=== PATIENT | female | born 1950 | race Caucasian/White ===

== ENCOUNTER 2019-06-07 10:49 | Outpatient (CLI) | payer MEDICARE, OTHER ==
[2019-06-07 11:13] LABS: BASOPHILS % (AUTO) 0.6 %; EOSINOPHILS # (AUTO) 0.1 10^3/uL (0.0-0.7); HGB - HEMOGLOBIN 14.2 g/dL (12.0-16.0); LYMPHOCYTES # (AUTO) 1.7 10^3/uL (1.5-3.5); LYMPHOCYTES % (AUTO) 25.3 %; MEAN CORPUSCULAR HEMOGLOBIN 29.3 pg (27.0-31.0); MEAN CORPUSCULAR HGB CONC 32.3 g/dL (32.0-36.0); MEAN CORPUSCULAR VOLUME 90.9 fL (81.0-99.0); MEAN PLATELET VOLUME 10.7 fL (7.9-10.8); MONOCYTES # (AUTO) 0.6 10^3/uL (0.0-1.0); MONOCYTES % (AUTO) 9.4 %; NEUTROPHILS # (AUTO) 4.3 10^3/uL (1.5-6.6); NEUTROPHILS % (AUTO) 63.3 %; PLT - PLATELET COUNT 289 10^3/uL (130-450); RED BLOOD COUNT 4.84 10^6/uL (4.20-5.40); RED CELL DISTRIBUTION WIDTH 12.9 % (12.0-15.0); WHITE BLOOD COUNT 6.7 x10^3/uL (4.8-10.8)
[2019-06-07 11:34] LABS: ALBUMIN 4.1 g/dL (3.2-5.5); ALBUMIN/GLOBULIN RATIO 1.2 (1.0-2.2); ALKALINE PHOSPHATASE 63 IU/L (42-121); ALT ALANINE AMINOTRANSFERASE 20 IU/L (10-60); AST ASPARTATE AMINOTRANSFERASE 24 IU/L (10-42); BILIRUBIN,TOTAL 0.6 mg/dL (0.2-1.0); BUN - BLOOD UREA NITROGEN 11 mg/dL (6-20); CALCIUM 9.3 mg/dL (8.5-10.3); CARBON DIOXIDE - CO2 26 mmol/L (21-32); CHLORIDE 101 mmol/L (101-111); CHOL/HDL RATIO 4.6 (<4.4); CHOLESTEROL 230 mg/dL; CREATININE 0.6 mg/dL (0.4-1.0); GFR - MDRD 100 (>89); GLUCOSE 100 mg/dL (70-100); HDL CHOLESTEROL 50 mg/dL; LDL CHOLESTEROL,CALCULATED 156 mg/dL; LDL/HDL RATIO 3.1 (<4.4); SODIUM 138 mmol/L (135-145); TOTAL PROTEIN 7.5 g/dL (6.7-8.2); VLDL CHOLESTEROL 24 mg/dL
== END 2019-06-07 10:50 | disposition home or self-care (01) ==
LOC: LAB 10:49
PROVIDERS: ATTEND Physician Assistant
DX: Z79.899 Other long term (current) drug therapy (principal)
CPT/HCPCS: 36415; 80053; 80061; 83721; 85025

== ENCOUNTER 2019-06-17 14:43 | Outpatient (CLI) | payer MEDICARE, OTHER ==
--- NOTE | 2019-06-30 08:58 | Mammography Report ---
Reason: SCREENING MAMMO Procedure Date: 06/17/2019 Accession Number: [id number] / [id number] Procedure: JOE - Screening Mammo w/Jeffry CPT Code: FULL RESULT: EXAM: Screening Mammo w/Jeffry DATE: 06/17/2019 3:19 PM CLINICAL HISTORY: Screening encounter. TECHNIQUE: (B) - Bilateral CC and MLO views were obtained. COMPARISON: None PARENCHYMAL PATTERN: (A) - The breast(s) demonstrate(s) scattered fibroglandular densities. FINDINGS: There are typically benign large rodlike calcifications. There are no suspicious masses, calcifications, or areas of distortion. IMPRESSION: Benign findings. BI-RADS category 2. RECOMMENDATION: (ANNUAL) - Recommend routine annual screening mammography. BI-RADS CATEGORY: (2) - Benign Findings. STANDARD QUALIFYING STATEMENTS: 1. This examination was not reviewed with the aid of Computer-Aided Detection (CAD). 2. A negative or benign imaging report should not preclude biopsy if clinically suspicious findings are present. 3. Dense breasts may obscure an underlying neoplasm. 4. This examination was reviewed with the aid of 3D breast imaging (tomosynthesis).
== END 2019-06-17 14:44 | disposition home or self-care (01) ==
LOC: DI 14:43
DX: Z12.31 Encounter for screening mammogram for malignant neoplasm of breast (principal)
CPT/HCPCS: 77063; 77067

== ENCOUNTER 2019-07-19 13:22 | Outpatient (CLI) | payer MEDICARE, OTHER ==
[2019-07-25 10:16] VITALS: BP 120/70
--- NOTE | 2019-07-25 10:16 | SLEEP CARE CONSULTATION ---
Information from patient questionnaire entered by Tresa Frederick. I have reviewed and concur with the information entered by Tresa Frederick. This document represents the service I personally performed and the decisions made by me, Noah Fairchild MD, [facility]. History of Present Illness Reason for Visit: New patient Chief Complaint: reports: Observed pauses in breathing, Frequent awakenings at night Duration of Symptoms: 7+ YEARS Usual bedtime: 10:00PM Time it takes to fall asleep: 10 MINUTES Snores at night: Yes Observed to quit breathing while asleep: Yes Sleeps alone due to snoring: No Number of times waking at night: 4-5 Reasons for waking at night: reports: Other (JUST WAKE UP) Toss, Turn, or Twitch while sleeping: Yes Recalls having dreams: Yes Usually gets out of bed at: 7:00 - 8:00 AM Feels refreshed in the morning: No Morning headache: Yes Sleepy or fatigued during the day: No Ever fallen asleep while driving: No Takes day naps: No Dreams during day naps: No Prior sleep studies: Yes (MULTIPLE LOCATIONS/STUDIES) Year and Where: 2011 [facility]/ 2012 [facility]/ 2018 [place] Additional HPI information: I had the pleasure of seeing Ms. Mcarthur today regarding obstructive sleep apnea-hypopnea. As you know, she is a 68 year old lady who was originally diagnosed with the sleep-disordered breathing at [facility] in [place] and then later at [facility] at 2011. The AHI was 33.9. Her CPAP is set at 9 cmH2O. Her CPAP is set at 9 cm. She wears a nasal mask. She uses her CPAP every night and all night. She did not bring the memory card. She thinks she sleeps better with the CPAP. She does not snore through the CPAP. Her durable medical supplier informed her that she needed a new prescription. She gained 20 lbs since her last sleep study. - Parasomnia Symptoms Ever been unable to move upon waking from sleep: No Walks in sleep: No Talks in sleep: No Ever acted out dreams in sleep: No Ever felt weak in the knees when startled or emotional: No Bothered by creepy, crawly, restless sensations in legs: No Problems with memory or concentration: No Subjective Initial [place] Sleepiness Scale score: 4 Past Medical History Past Medical History: reports: Anxiety Social History The patient's occupation is a RE. Patient is and lives in [place]. Have you smoked in the past 12 months: No Alcohol use: Yes Alcohol amount and frequency: 1 GLASS/WEEK Caffeine use: Yes Caffeine amount and frequency: 2 CUPS/AM Family History Family history of sleep disordered breathing: Yes Family Hx Sleep Apnea: Sibling: Snoring (SON) Allergies and Home Medications Known drug allergies: No Drug allergies reviewed: Yes Home medication list reviewed: Yes (sertraline, gabapentin, and Tylenol) Review of Systems Cardiovascular: denies: high blood pressure, palpitations, chest pain, irregular heart rate or pulse, leg or foot swelling, have to sleep sitting up, other Respiratory: denies: shortness of breath, wheeze, sputum production, chronic cough, other Gastrointestinal: denies: heartburn, difficulty swallowing, nausea, vomitting, diarrhea, abdominal pain, other Urinary: denies: incontinence, frequency, urgency, impotence, other Neurological: reports: headaches Psychiatric: reports: anxiety Ear/Nose/Throat: denies: nasal congestion, sinus problems, nose bleeds, dry mouth/throat, hoarseness, injury to nose, tonsillectomy, wisdom teeth removed, other Endocrine: reports: history of goiter Musculoskeletal: reports: neck pain, back pain, muscle pain or cramping (CRAMPING) Physical Exam Vital signs obtained and entered by: Dr. Fairchild Blood Pressure: 120/70 Cuff size: regular Heart Rate: 72 O2 Saturation: 96 Height: 5 ft 5 in Weight (kg): 156 lb Body Mass Index: 25.9 BMI Classification: Overweight HEENT: No craniofacial malformation Nostrils: patent to airflow Turbinates: normal Septum: midline Mouth and throat: narrow oropharynx Soft palate: long Hard palate: normal Uvula: normal Uvula visualization: 50% Mallampati Class II Tongue: normal in size Tonsils: small Chin and jaw: normal size and position Neck: normal w/o lymphadenopathy or thyromegaly Heart: regular rate and rhythm Lungs: clear bilaterally Abdomen: soft, non-tender Extremities: no edema or clubbing Neurologic: intact, no focal deficits Impression and Plan IMPRESSION: 1. Obstructive Sleep Apnea-Hypopnea Syndrome, severe, as previously diagnosed. According to her, she has had good treatment compliance. The effectiveness of the treatment is unknown as we do not have the compliance/efficacy report to review. Narrow oropharynx and obesity are common predisposing factors for obstructive sleep apnea-hypopnea syndrome. Because the CPAP is now older than the useful life of 5 years, I will order the patient a new one and make it an autoCPAP set between 7 and 12 cmH2O. Plan: 1. Prescription made for an autoCPAP, heated humidifier, and related supplies. 2. Try Respironics DreamWear nasal cushion mask and ResMed N30i mask. 3. Attempt to lose some weight. 4. Obtain her diagnostic polysomnography from [facility] or [place]. 5. Return for follow up after one month on the new machine. I spent 100% of this 15 minute visit face to face with the patient with greater than 50% of this was spent time counseling the patient and coordination of care.
== END 2019-07-19 13:23 | disposition home or self-care (01) ==
LOC: SC 13:22
PROVIDERS: ATTEND Internal Medicine Pulmonary Disease
DX: G47.33 Obstructive sleep apnea (adult) (pediatric) (principal)
CPT/HCPCS: 99203; G0463; 99212

== ENCOUNTER 2019-09-13 08:03 | Outpatient (CLI) | payer MEDICARE, OTHER ==
[2019-09-13 08:40] LABS: CHOL/HDL RATIO 4.3 (<4.4); CHOLESTEROL 210 mg/dL; HDL CHOLESTEROL 49 mg/dL; LDL CHOLESTEROL,CALCULATED 143 mg/dL; LDL/HDL RATIO 2.9 (<4.4); VLDL CHOLESTEROL 18 mg/dL
== END 2019-09-13 08:04 | disposition home or self-care (01) ==
LOC: LAB 08:03
PROVIDERS: ATTEND Physician Assistant
DX: E78.5 Hyperlipidemia, unspecified (principal)
CPT/HCPCS: 36415; 80061; 83721

== ENCOUNTER 2019-10-11 10:59 | Outpatient (CLI) | payer MEDICARE, OTHER ==
--- NOTE | 2019-10-11 11:24 | SLEEP CARE CONSULTATION ---
Information from patient questionnaire entered by Tresa Frederick. I have reviewed and concur with the information entered by Tresa Frederick. This document represents the service I personally performed and the decisions made by me, Noah Fairchild MD, [facility]. History of Present Illness Previous diagnosis: Severe, Obstructive Sleep Apnea-Hypopnea Syndrome AHI: 33.9 Reason for follow up: first compliance Equipment type: CPAP Equipment obtained from: [employer] Prior sleep studies: Yes HPI additional information: HPI: Ms. Mcarthur returned today for follow up of nasal CPAP therapy. She was diagnosed with severe obstructive sleep apnea-hypopnea syndrome. The patient recently acquired a new autoCPAP from [employer]. She now wears the [employer] DreamWear nasal cushion mask. She reports using the device nightly and all through the night. She complained of no particular problem with the device such as soreness on the face, dry nose, epistaxis, nasal congestion or headache. She thinks that the pressure of 7 12 cmH2O is comfortable (her old CPAP was set on 9 cmH2O). She no longer has aerophagia. On the CPAP therapy she notices improvement in her sleep quality, and that she wakes up feeling fresher in the morning and more awake/alert during the day. Her notices no snore at all. The average residual AHI is 2.7; and air leak, 0 L/min. The 90th percentile pressure is 8.7 cmH2O. CPAP Compliance Data - Data Reviewed with Patient Average duration of nightly device use: 6H 33M Compliance rate %: 100 Current pressure setting (cmH2O): 7-12 Humidity settin Heated hose settin Average residual AHI: 2.7 Average large leak: 0s Subjective Patient concerns: reports: mask discomfort, air blowing in eyes Initial [place] Sleepiness Scale score: 4 Current [place] Sleepiness Scale score: 3 Allergies and Home Medications Drug allergies reviewed: Yes Home medication list reviewed: Yes Review of Systems Review of systems same as previous: Yes Physical Exam Weight: 156 lb Impression and Plan IMPRESSION: 1. Obstructive Sleep Apnea-Hypopnea Syndrome, severe, with the patient doing well on nasal CPAP therapy. She has excellent compliance and significant clinical improvement. The current pressure appears effective and comfortable. Overall, she is very satisfied with treatment and plans to continue with it long-term. No adjustment is necessary today. PLAN: 1. Continue with autoCPAP set at 7 - 12 cmH2O. 2. Try ResMed N30i mask 4. Return in one year for follow up or earlier if there is any problem with the treatment. I spent 100% of this 20 minute visit face to face with the patient with greater than 50% of this was spent time counseling the patient and coordination of care.
== END 2019-10-11 11:00 | disposition home or self-care (01) ==
LOC: SC 10:59
PROVIDERS: ATTEND Internal Medicine Pulmonary Disease
DX: G47.33 Obstructive sleep apnea (adult) (pediatric) (principal)
CPT/HCPCS: 99213; G0463; 99212

== ENCOUNTER 2020-06-27 07:56 | Outpatient (CLI) | payer MEDICARE, OTHER ==
[2020-06-27 08:28] LABS: ALBUMIN 4.3 g/dL (3.2-5.5); ALBUMIN/GLOBULIN RATIO 1.4 (1.0-2.2); ALKALINE PHOSPHATASE 51 IU/L (42-121); ALT ALANINE AMINOTRANSFERASE 15 IU/L (10-60); AST ASPARTATE AMINOTRANSFERASE 20 IU/L (10-42); BILIRUBIN,TOTAL 0.4 mg/dL (0.2-1.0); BUN - BLOOD UREA NITROGEN 13 mg/dL (6-20); CARBON DIOXIDE - CO2 27 mmol/L (21-32); CHLORIDE 102 mmol/L (101-111); CHOL/HDL RATIO 3.7 (<4.4); CHOLESTEROL 201 mg/dL; CREATININE 0.6 mg/dL (0.4-1.0); GLUCOSE 100 mg/dL (70-100); HDL CHOLESTEROL 54 mg/dL; LDL CHOLESTEROL,CALCULATED 129 mg/dL; LDL/HDL RATIO 2.4 (<4.4); SODIUM 138 mmol/L (135-145); TOTAL PROTEIN 7.3 g/dL (6.7-8.2); VLDL CHOLESTEROL 18 mg/dL
== END 2020-06-27 07:57 | disposition home or self-care (01) ==
LOC: LAB 07:56
PROVIDERS: ATTEND Physician Assistant
DX: E78.5 Hyperlipidemia, unspecified (principal)
CPT/HCPCS: 36415; 80053; 80061; 83721

== ENCOUNTER 2020-07-15 12:57 | Outpatient (CLI) | payer MEDICARE, OTHER ==
--- NOTE | 2020-07-15 14:39 | Ultrasound Report ---
PROCEDURE: Head or Neck Soft Tissue INDICATIONS: THYROID NODULE TECHNIQUE: Real-time scanning was performed of the thyroid gland, with image documentation. COMPARISON: 06/21/2019 FINDINGS: Right: There is a right lobe measures 3.9 x 1.6 x 1.3 cm. Left: The left thyroid lobe measures 3.8 x 1.2 x 1.1 cm Isthmus: The thyroid isthmus measures 3 mm in thickness. 2 Right-sided thyroid nodules are seen: Right superior thyroid laterally 0.4 x 0.2 x 0.3 cm, previously measuring 0.4 x 0.2 x 0.3 cm Solid Markedly hypoechoic Wider than than tall Smooth margins Punctate calcifications Total points: 7 TI-RADS category: 5 Right mid thyroid posteriorly 0.5 x 0.3 x 0.4 cm, previously measuring 0.6 x 0.5 x 0.4 cm Solid Markedly hypoechoic Weighted interval Smooth margins Punctate calcifications Total points: 7 TI-RADS category: 5 Nonenlarged lymph nodes can be seen on both sides. The left-sided lymph node is decreased in size com pared to the prior. IMPRESSION: Stable right-sided thyroid nodules are seen. Given the small size, no specific imaging follow-up is r ecommended by published criteria. However, attention should be paid to these nodules on future follow -up studies. Nonenlarged lymph nodes are seen on both sides. Reviewed by: Pedro Luis Claros MD on 07/15/2020 1:38 PM NIKO Approved by: Pedro Luis Claros MD on 07/15/2020 1:38 PM NIKO Station ID: [id number]
== END 2020-07-15 12:58 | disposition home or self-care (01) ==
LOC: DI 12:57
PROVIDERS: ATTEND Physician Assistant
DX: E04.2 Nontoxic multinodular goiter (principal)
CPT/HCPCS: 76536

== ENCOUNTER 2020-07-19 10:55 | Outpatient (CLI) | payer MEDICARE, OTHER ==
--- NOTE | 2020-07-19 12:19 | DEXA Report ---
PROCEDURE: Dexa Spine and/or Hip INDICATIONS: OSTEOPOROSIS TECHNIQUE: Dual energy x-ray absorptiometry (DXA) was performed on a [employer] System. Regions measur ed are the AP Spine, femoral neck, and if needed forearm. COMPARISON: 06/21/2019 FINDINGS: Lumbar Spine: Bone Mineral Density 0.971 g/cm/cm,T score -1.7, osteopenia, change from previous -0.7% Left Hip: Bone Mineral Density 0.728 g/cm/cm,T score -2.2, osteopenia, change from previous 4.0% Left Femoral Neck: Bone Mineral Density 0.722 g/cm/cm, T score -2.3, osteopenia, (T score greater or equal to -1.0: NORMAL) (T score from -1.1 to -2.4: OSTEOPENIA) (T score less than or equal to -2.5 to: OSTEOPOROSIS) Impression: 1. Osteopenia elevates the patient's fracture risk. 2. Interval increase in left hip bone mineral density compared to the prior study. Patients with diagnosis of osteoporosis or osteopenia should have regular bone mineral density assess ment. For those eligible for Medicare, routine testing is allowed once every 2 years. Testing frequ ency can be increased for patients who have rapidly progressing disease or for those who are receivin g medical therapy to restore bone mass. Reviewed by: Ayanna Lawrence MD on 07/19/2020 12:17 PM PDT Approved by: Ayanna Lawrence MD on 07/19/2020 12:17 PM PDT Station ID: [id number]
== END 2020-07-19 10:56 | disposition home or self-care (01) ==
LOC: DI 10:55
PROVIDERS: ATTEND Physician Assistant
DX: M85.89 Other specified disorders of bone density and structure, multiple sites (principal)
CPT/HCPCS: 77080

== ENCOUNTER 2020-08-10 09:44 | Outpatient (CLI) | payer MEDICARE, OTHER ==
--- NOTE | 2020-08-10 10:20 | SLEEP CARE CONSULTATION ---
Information from patient questionnaire entered by Ailin Jhaveri. I have reviewed and concur with the information entered by Ailin Jhaveri. This document represents the service I personally performed and the decisions made by , Danay Norris ARNP. History of Present Illness Service Date and Time: 08/10/2020 09 Previous diagnosis: Severe, Obstructive Sleep Apnea-Hypopnea Syndrome AHI: 33.9 (in 2011) Reason for follow up: other (10 month) Equipment type: CPAP Equipment obtained from: [employer] (getting supplies as needed) Mask style: Nasal pillows Mask brand: Respironics Backup mask available: Yes (will save older mask when gets replacement) Last cushion change: 2 days ago Prior sleep studies: Yes Year and Where: 2011 [facility]/ 2012 [facility]/ 2017 [facility] additional information: GLORY JUNG was diagnosed to have severe, AHI 33.9, obstructive sleep apnea-hypopnea syndrome and returned today for CPAP therapy 10 month follow-up. Sleep Study - Results Prior sleep studies: Yes Year and Where: 2011 [facility]2017 [place] CPAP Compliance Data - Data Reviewed with Patient Average duration of nightly device use: 6.2 Compliance rate %: 98.3 (180 days) Current pressure setting (cmH2O): 7-12 Humidity settin Heated hose settin Average residual AHI: 2.7 Average large leak: 3 sec Subjective Patient concerns: reports: aerophagia (occasional- couple times a month), mask discomfort (when she awakens during the night, feels uncomfortable then), condensation in mask/hose (gets little sweaty; no condensation in hose), dry mouth, nose, throat (sometimes a dry mouth, 1-2 times a month). denies: air blowing in eyes (wakes up with dry eyes every morning), mask leak noise, nasal congestion, epistaxis, other Observed to snore while using device: No (as far as she knows; has not noticed) Current pressure setting perceived as: comfortable On therapy, patient: reports: sleeping better, awakening more refreshed, being more awake and alert during the day, more rested overall, other (reduced morning headaches). denies: drowsiness while driving Initial [place] Sleepiness Scale score: 4 (in 2019) Current [place] Sleepiness Scale score: 3 Allergies and Home Medications Drug allergies reviewed: Yes (NKDA) Home medication list reviewed: Yes Allergy and home medication list: Alendronate Sodium tab 70 mg, 1 tablet weekly for osteoporosis. Review of Systems Review of systems same as previous: No (osteoporosis) Physical Exam Heart Rate: 73 O2 Saturation: 97 Height: 5 ft 5 in Weight: 142 lb Body Mass Index: 23.6 BMI Classification: Healthy weight Impression and Plan 1. Obstructive Sleep Apnea-Hypopnea Syndrome, severe, with good treatment compliance and good apnea control. On CPAP therapy, the patient has better sleep quality and is more rested overall. Patient states only 1-2 times a month does she wake up with aerophagia and the pressure overall does not feel too high. Over the last couple of months she is waking up at 2-3 AM and feeling wide awake. She is unable to go to sleep and gets frustrated with the mask because she is not asleep and may take it off. She does have a little claustrophobic feeling. She states no issue with small nasal air pillow mask fit, no air blowing in her eyes or air leak noises. She is unsure why she is waking up and cannot get to sleep. She stated that she has been going back to sleep for a few hours to compensate for not sleeping in the early hours of the morning. I reviewed with her to look at making sure she is consistent with going to bed at the same time and getting up at the same time every day which may help with these insomniac events. She denies condensation in the hose but is having some "sweating" around the mask itself from the air feeling warm. I advised her to adjust the humidity setting and/or the heated hose until this improves and instructed her how to do this. She also has been having dry eyes every morning. She does not feel air blowing into her eyes which could cause this dryness. I advised her to try some OTC moisture drops and to see her eye doctor for an evaluation of her dry eyes and possible treatment if needed. She voiced understanding and agreement with this plan of care. Patient's apnea severity and rationale for treatment to reduce apnea, improve sleep quality and reduce cardiovascular and cerebrovascular events was reviewed. I also reviewed the benefit of consistent device use of CPAP for anxiety. * Continue auto CPAP pressure at 7-12 cmH2O * Follow up with Eye doctor for eye dryness * Notify me if snoring with mask or feeling that the pressure is too much or too little * Call this office if any problems using CPAP * Return for follow up in 1 year, or sooner if concerns arise Visit Type: In Office Time Spent with Patient (minutes): 21 Provider Statement: I spent 100% of the Face to Face Visit with the patient with greater than 50% spent counseling the patient and coordination of care.
== END 2020-08-10 09:45 | disposition home or self-care (01) ==
LOC: SC 09:44
PROVIDERS: ATTEND Nurse Practitioner Family
DX: G47.33 Obstructive sleep apnea (adult) (pediatric) (principal)
CPT/HCPCS: 99213; G0463; 99212

== ENCOUNTER 2021-07-01 07:13 | Outpatient (CLI) | payer MEDICARE, OTHER ==
[2021-07-01 07:30] LABS: BASOPHILS % (AUTO) 0.5 %; EOSINOPHILS # (AUTO) 0.1 10^3/uL (0.0-0.7); HCT - HEMATOCRIT 43.6 % (37.0-47.0); HGB - HEMOGLOBIN 14.3 g/dL (12.0-16.0); LYMPHOCYTES # (AUTO) 1.5 10^3/uL (1.5-3.5); LYMPHOCYTES % (AUTO) 24.8 %; MEAN CORPUSCULAR HEMOGLOBIN 30.7 pg (27.0-31.0); MEAN CORPUSCULAR HGB CONC 32.8 g/dL (32.0-36.0); MEAN CORPUSCULAR VOLUME 93.6 fL (81.0-99.0); MEAN PLATELET VOLUME 11.4 fL (7.9-10.8); MONOCYTES # (AUTO) 0.6 10^3/uL (0.0-1.0); MONOCYTES % (AUTO) 9.5 %; NEUTROPHILS # (AUTO) 3.7 10^3/uL (1.5-6.6); PLT - PLATELET COUNT 264 10^3/uL (130-450); RED BLOOD COUNT 4.66 10^6/uL (4.20-5.40); WHITE BLOOD COUNT 5.9 x10^3/uL (4.8-10.8)
[2021-07-01 07:48] LABS: ALBUMIN 4.1 g/dL (3.2-5.5); ALBUMIN/GLOBULIN RATIO 1.5 (1.0-2.2); ALKALINE PHOSPHATASE 51 IU/L (42-121); ALT ALANINE AMINOTRANSFERASE 15 IU/L (10-60); AST ASPARTATE AMINOTRANSFERASE 19 IU/L (10-42); BILIRUBIN,TOTAL 0.4 mg/dL (0.2-1.0); BUN - BLOOD UREA NITROGEN 11 mg/dL (6-20); CALCIUM 9.1 mg/dL (8.5-10.3); CARBON DIOXIDE - CO2 29 mmol/L (21-32); CHLORIDE 103 mmol/L (101-111); CHOL/HDL RATIO 4.3 (<4.4); CHOLESTEROL 196 mg/dL; CREATININE 0.7 mg/dL (0.4-1.0); GFR - MDRD 83 (>89); GLUCOSE 98 mg/dL (70-100); HDL CHOLESTEROL 46 mg/dL; LDL CHOLESTEROL,CALCULATED 125 mg/dL; LDL/HDL RATIO 2.7 (<4.4); POTASSIUM 4.1 mmol/L (3.5-5.0); SODIUM 139 mmol/L (135-145); TOTAL PROTEIN 6.8 g/dL (6.7-8.2); TRIGLYCERIDES 124 mg/dL; VLDL CHOLESTEROL 25 mg/dL
[2021-07-01 08:00] LABS: THYROID STIMULATING HORMONE 1.64 uIU/mL (0.34-5.60)
== END 2021-07-01 07:14 | disposition home or self-care (01) ==
LOC: LAB 07:13
PROVIDERS: ATTEND Nurse Practitioner
DX: E78.5 Hyperlipidemia, unspecified (principal); R53.83 Other fatigue
CPT/HCPCS: 36415; 80053; 80061; 83721; 84443; 85025

== ENCOUNTER 2021-07-19 09:48 | Outpatient (CLI) | payer MEDICARE, OTHER ==
--- NOTE | 2021-07-22 15:58 | Mammography Report ---
BILATERAL DIGITAL SCREENING MAMMOGRAM 3D/2D: 07/19/2021 CLINICAL: Routine screening. Comparison is made to exams dated: 06/17/2019 mammogram - [facility] and 12/18/2016 [facility]. There are scattered fibroglandular elements in both boris asts. No significant masses, calcifications, or other findings are seen in either breast. There has been no significant interval change. IMPRESSION: NEGATIVE There is no mammographic evidence of malignancy. A 1 year screening mammogram is recommended. This exam was interpreted at Station ID: [id number]. NOTE: For mammograms, a report in lay terms will be sent to the patient. Approximately 15% of breast malignancies will not be visualized mammographically. In the management of a palpable breast mass, a negative mammogram must not discourage biopsy of a clinically suspicious lesion. Electronically Signed By: David Thompson M.D. slc/penrad:07/19/2021 12:41:00 ACR BI-RADS Category 1: Negative 3341F PARENCHYMAL PATTERN: (A) - The breast(s) demonstrate(s) scattered fibroglandular densities. BI-RADS CATEGORY: (1) - 1 RECOMMENDATION: (ANNUAL) - Recommend routine annual screening mammography. [id number] 1 year screening LATERALITY: (B)
== END 2021-07-19 09:49 | disposition home or self-care (01) ==
LOC: DI 09:48
DX: Z12.31 Encounter for screening mammogram for malignant neoplasm of breast (principal)

== ENCOUNTER 2021-08-07 10:26 | Outpatient (CLI) | payer MEDICARE, OTHER ==
[2021-08-07 11:00] VITALS: BP 112/67
--- NOTE | 2021-08-07 11:00 | SLEEP CARE CONSULTATION ---
Information from patient questionnaire entered by Ailin Jhaveri. I have reviewed and concur with the information entered by Ailin Jhaveri. This document represents the service I personally performed and the decisions made by , Danay Norris ARNP. History of Present Illness Service Date and Time: 08/07/2021 1026 Previous diagnosis: Severe, Obstructive Sleep Apnea-Hypopnea Syndrome AHI: 33.9 (in 2011) Reason for follow up: annual (last seen 07/2020) Equipment type: CPAP Equipment obtained from: [employer] (getting supplies as needed) Mask style: Nasal Backup mask available: Yes (old mask) Last cushion change: 1 week Prior sleep studies: Yes Year and Where: 2011 [facility] Type of Sleep Study: Polysomnography HPI additional information: GLORY JUNG was diagnosed to have severe, AHI 33.9, obstructive sleep apnea-hypopnea syndrome and returned today for CPAP therapy annual follow-up. CPAP Compliance Data - Data Reviewed with Patient Average duration of nightly device use: 6 hr 34 min Compliance rate %: 98.3 (180 days) Current pressure setting (cmH2O): 7-12 Humidity settin Heated hose settin Average residual AHI: 3.0 Average large leak: 9 sec Subjective Patient concerns: reports: air blowing in eyes (just waking up with dry eyes), dry mouth, nose, throat (dry mouth), other (headache). denies: aerophagia, mask discomfort, mask leak noise, condensation in mask/hose, nasal congestion, epistaxis Observed to snore while using device: No Current pressure setting perceived as: comfortable On therapy, patient: reports: sleeping better, awakening more refreshed, being more awake and alert during the day, more rested overall. denies: drowsiness while driving Initial [place] Sleepiness Scale score: 4 (in 2019) Current [place] Sleepiness Scale score: 3 Allergies and Home Medications Home medication list reviewed: Yes Allergy and home medication list: Alendronate Sodium Sertraline HCL Premarin Cream Review of Systems Review of systems same as previous: Yes (no changes) Physical Exam Blood Pressure: 112/67 Cuff size: wrist Heart Rate: 67 O2 Saturation: 85 Height: 5 ft 5 in Weight: 148 lb Body Mass Index: 24.6 BMI Classification: Healthy weight Impression and Plan 1. Obstructive Sleep Apnea-Hypopnea Syndrome, severe, with good treatment compliance and good apnea control. On CPAP therapy, the patient has better sleep quality and is more rested overall. Patient states she feels she is doing better than she has overall since starting use of her CPAP therapy. She does get some dry eyes and some mouth dryness regularly. I encouraged her to try to use a sleeping mask to cover her eyes to see if this will help reduce any eye dryness. Oral dryness can be reduced by adjusting humidity setting higher or heated hose lower or by adjusting both settings. Verbal instructions given on how to change humidity and heated hose settings with rationale explaining why to change. Patient does have a [employer] device. Patient has already registered their device for the recall. Patient denies any black particles seen in machine or hos es, any unusual odors coming from device. Patient has not experienced any physical symptoms such as upper airway irritation, skin or eye irritation, asthma, nausea/vomiting, difficulty breathing or chest pain. Patient informed that they may use an inline CPAP filter that they can obtain online to reduce chance of any particles being inhaled or ingested. We discussed thoroughly the health risks of not using the CPAP versus continuing use with the filter in place. If patient is not able to sleep due to waking up choking, gasping for air or other respiratory distress that they may decide to continue using it until it is either replaced or repaired. Patient states she will continue using device with a filter until it is repaired. Patient voiced understanding and agreement with plan. Patient's apnea severity and rationale for treatment to reduce apnea, improve sleep quality and reduce cardiovascular and cerebrovascular events was reviewed. I also reviewed the benefit of consistent device use of CPAP for anxiety. * Continue auto CPAP pressure at 7-12 cmH2O * Notify me if snoring with mask or feeling that the pressure is too much or too little * Maintain a healthy weight * Call this office if any problems using CPAP * Return for follow up in 1 year, or sooner if concerns arise Counseling Topics: Spare mask, Weight control Visit Type: In Office Time Spent with Patient (minutes): 17 Provider Statement: I spent 100% of the Face to Face Visit with the patient with greater than 50% spent counseling the patient and coordination of care.
== END 2021-08-07 10:27 | disposition home or self-care (01) ==
LOC: SC 10:26
PROVIDERS: ATTEND Nurse Practitioner Family
DX: G47.33 Obstructive sleep apnea (adult) (pediatric) (principal)
CPT/HCPCS: 99212; G0463

== ENCOUNTER 2022-06-18 08:26 | Outpatient (CLI) | payer MEDICARE, OTHER ==
[2022-06-18 08:39] LABS: BASOPHILS # (AUTO) 0.1 10^3/uL (0.0-0.1); BASOPHILS % (AUTO) 0.9 %; EOSINOPHILS # (AUTO) 0.1 10^3/uL (0.0-0.7); EOSINOPHILS % (AUTO) 1.5 %; HCT - HEMATOCRIT 43.6 % (37.0-47.0); HGB - HEMOGLOBIN 14.4 g/dL (12.0-16.0); LYMPHOCYTES # (AUTO) 1.7 10^3/uL (1.5-3.5); LYMPHOCYTES % (AUTO) 30.9 %; MEAN CORPUSCULAR HEMOGLOBIN 30.2 pg (27.0-31.0); MEAN CORPUSCULAR VOLUME 91.4 fL (81.0-99.0); MEAN PLATELET VOLUME 11.1 fL (7.9-10.8); MONOCYTES # (AUTO) 0.6 10^3/uL (0.0-1.0); MONOCYTES % (AUTO) 11.1 %; NEUTROPHILS # (AUTO) 3.1 10^3/uL (1.5-6.6); NEUTROPHILS % (AUTO) 55.4 %; PLT - PLATELET COUNT 275 10^3/uL (130-450); RED BLOOD COUNT 4.77 10^6/uL (4.20-5.40); RED CELL DISTRIBUTION WIDTH 13.2 % (12.0-15.0); WHITE BLOOD COUNT 5.5 x10^3/uL (4.8-10.8)
[2022-06-18 08:55] LABS: ALBUMIN 4.3 g/dL (3.2-5.5); ALBUMIN/GLOBULIN RATIO 1.5 (1.0-2.2); ALKALINE PHOSPHATASE 48 IU/L (42-121); ALT ALANINE AMINOTRANSFERASE 14 IU/L (10-60); AST ASPARTATE AMINOTRANSFERASE 19 IU/L (10-42); BILIRUBIN,TOTAL 0.5 mg/dL (0.2-1.0); BUN - BLOOD UREA NITROGEN 15 mg/dL (6-20); CALCIUM 9.2 mg/dL (8.5-10.3); CARBON DIOXIDE - CO2 28 mmol/L (21-32); CHLORIDE 103 mmol/L (101-111); CHOL/HDL RATIO 3.9 (<4.4); CHOLESTEROL 213 mg/dL; CREATININE 0.6 mg/dL (0.4-1.0); GFR - MDRD 99 (>89); GLUCOSE 98 mg/dL (70-100); HDL CHOLESTEROL 55 mg/dL; LDL CHOLESTEROL,CALCULATED 140 mg/dL; LDL/HDL RATIO 2.5 (<4.4); POTASSIUM 4.1 mmol/L (3.5-5.0); SODIUM 138 mmol/L (135-145); TOTAL PROTEIN 7.1 g/dL (6.7-8.2); TRIGLYCERIDES 91 mg/dL; VLDL CHOLESTEROL 18 mg/dL
[2022-06-18 09:07] LABS: THYROID STIMULATING HORMONE 3.13 uIU/mL (0.34-5.60)
== END 2022-06-18 08:27 | disposition home or self-care (01) ==
LOC: LAB 08:26
PROVIDERS: ATTEND Nurse Practitioner
DX: E78.5 Hyperlipidemia, unspecified (principal); E04.1 Nontoxic single thyroid nodule; R53.83 Other fatigue
CPT/HCPCS: 36415; 80053; 80061; 83721; 84443; 85025

== ENCOUNTER 2022-07-30 08:00 | Outpatient (CLI) | payer MEDICARE, OTHER | END 2022-07-30 23:59 | disposition home or self-care (01) | LOC: LAB.N 08:00 | PROVIDERS: ATTEND Nurse Practitioner | DX: R30.0 Dysuria (principal) | CPT/HCPCS: 87086 ==

== ENCOUNTER 2022-08-27 11:06 | Outpatient (CLI) | payer MEDICARE, OTHER ==
[2022-08-27 11:36] VITALS: BP 142/70
--- NOTE | 2022-08-27 11:36 | SLEEP CARE CONSULTATION ---
Information from patient questionnaire entered by Zuri Conn. I have reviewed and concur with the information entered by Zuri Conn. This document represents the service I personally performed and the decisions made by , Danay Norris ARNP. History of Present Illness Service Date and Time: 08/27/2022 1106 Previous diagnosis: Severe, Obstructive Sleep Apnea-Hypopnea Syndrome AHI: 33.9 (in 2011) Reason for follow up: annual (LAST SEEN 07/2021) Equipment type: CPAP (DREAMSTATION) Equipment obtained from: [employer] (getting supplies as needed) Mask style: Nasal Mask brand: Respironics (Dreamwear) Backup mask available: No (will keep mask when replaced) Last cushion change: 2 weeks this coming thursday Prior sleep studies: Yes Year and Where: [address] [place] [address] Type of Sleep Study: Polysomnography HPI additional information: GLORY JUNG was diagnosed to have severe, AHI 33.9, obstructive sleep apnea-hypopnea syndrome and returned today for CPAP therapy annual follow-up. Sleep Study - Results Type of Sleep Study: Polysomnography Prior sleep studies: Yes Year and Where: [address] [place] [address] CPAP Compliance Data - Data Reviewed with Patient Average duration of nightly device use: 7 hours, 4 minutes, 14 seconds Compliance rate %: 97.8 (02/27/22 to 08/25/22; 180/180 days used) Current pressure setting (cmH2O): 7-12 (90% avg - 9.0) Average residual AHI: 2.8 Average large leak: 0 secs Subjective Missed days of use due to: reports: illness (Cold) Patient concerns: reports: dry mouth, nose, throat (dry mouth, occasionally). denies: aerophagia, mask discomfort, air blowing in eyes, mask leak noise, condensation in mask/hose, nasal congestion, epistaxis Observed to snore while using device: No Current pressure setting perceived as: comfortable On therapy, patient: reports: sleeping better, awakening more refreshed, being more awake and alert during the day, more rested overall. denies: drowsiness while driving Initial Cranston Sleepiness Scale score: 4 (in 2019) Current Cranston Sleepiness Scale score: 2 (08/27/22) Allergies and Home Medications Drug allergies reviewed: Yes (NKDA) Home medication list reviewed: Yes Allergy and home medication list: New medication: Atorvastatin Calcium 10 mg tab daily previous: Alendronate Sodium 70 mg weekly Sertraline hcl 50 mg daily Review of Systems Review of systems same as previous: Yes (no changes) Physical Exam Vital signs obtained and entered by: AYAN HENSON Blood Pressure: 142/70 (left arm ) Cuff size: regular Heart Rate: 77 O2 Saturation: 97 Height: 5 ft 5 in Weight: 151 lb Body Mass Index: 25.1 BMI Classification: Overweight Impression and Plan 1. Obstructive Sleep Apnea-Hypopnea Syndrome, severe, with good treatment compliance and good apnea control. On CPAP therapy, the patient has better sleep quality and is more rested overall. Patient has significant improvement of her sleep apnea and is satisfied with current CPAP therapy. Patient denies problems with nasal congestion, epistaxis, skin irritation or aerophagia. We will update her supply prescription. Patient's apnea severity and rationale for treatment to reduce apnea, improve sleep quality and reduce cardiovascular and cerebrovascular events was reviewed. I also reviewed the benefit of consistent device use of CPAP for anxiety. * Continue auto CPAP pressure at 7-12 cmH2O * Update supplies * Notify me if snoring with mask or feeling that the pressure is too much or too little * Call this office if any problems using CPAP * Return for follow up in 1 year, or sooner if concerns arise Counseling Topics: Spare mask, Weight loss health impact Visit Type: In Office Time Spent with Patient (minutes): 20 Provider Statement: I spent 100% of the Face to Face Visit with the patient with greater than 50% spent counseling the patient and coordination of care.
== END 2022-08-27 11:07 | disposition home or self-care (01) ==
LOC: SC 11:06
PROVIDERS: ATTEND Nurse Practitioner Family
DX: G47.33 Obstructive sleep apnea (adult) (pediatric) (principal)
CPT/HCPCS: 99213; G0463; 99212

== ENCOUNTER 2023-01-16 09:52 | Day surgery (SDC) | payer MEDICARE, OTHER ==
[2023-01-16] MEDS ORDERED: LACTATED RINGERS 1,000 ML IV ONE (09:54)
[2023-01-16] MEDS ORDERED: PROPOFOL 500 MG/50 ML 500 MG/50 ML VIAL ONE (11:19)
--- NOTE | 2023-01-16 11:20 | ANESTHESIA ---
Pre-Anesthesia VS, & Labs - Diagnosis screening - Procedure colonoscopy Vital Signs: Temp Pulse Resp BP Pulse Ox O2 Flow Rate 36 C L 94 16 116/88 H 98 01/16/23 09:57 01/16/23 09:57 01/16/23 09:57 01/16/23 09:57 01/16/23 09:57 Height: 5 ft 5 in Weight (kg): 68 kg Body Mass Index: 24.9 BMI Classification: Normal - NPO >8 hours - Is Patient ?: No Home Medications and Allergies Home Medications: Ambulatory Orders Alendronate [Fosamax] 70 mg PO Q7D 01/15/23 Sertraline [Zoloft] 50 mg PO DAILY 01/15/23 Atorvastatin [Lipitor] 1 tab PO DAILY 08/27/22 Alendronate [Fosamax] 70 mg PO Q7D 01/15/23 Sertraline [Zoloft] 50 mg PO DAILY 01/15/23 Allergies/Adverse Reactions: Allergies Allergy/AdvReac Type Severity Reaction Status Date / Time No Known Drug Allergies Allergy Verified 01/15/23 12:57 Anes History & Medical History - Anesthetic History Anesthesia Complications: reports: No previous complications - Medical History Cardiovascular: reports: High cholesterol Pulmonary: reports: Sleep apnea, CPAP use Gastrointestinal: reports: None Urinary: reports: None Musculoskeletal: reports: Osteoporosis Endocrine/Autoimmune: reports: None Skin: reports: None - Surgical History Gynecologic: reports: section Exam General: Alert, Oriented x3 Dental: WNL Mouth Opening: Greater than 4 Fingerbreadths Neck Mobility: Normal Mallampati classification: I Respiratory: Lungs clear Cardiovascular: Regular rate Plan Anesthesia Type: Total IV Consent for Procedure(s) Verified and Reviewed: Yes Code Status: Attempt Resuscitation ASA classification: 2-Mild systemic disease Is this case an emergency?: No
[2023-01-16] MEDS ORDERED: ACETAMINOPHEN 1,000 MG/100 ML 1,000 MG/100 ML BAG IV ONE (11:55)
[2023-01-16] MEDS ORDERED: PROPOFOL 200 MG/20 ML VIAL IVP ONE (12:37)
[2023-01-16] MEDS ORDERED: LACTATED RINGERS 400 ML IV ONE (13:00)
--- NOTE | 2023-01-16 13:32 | ANESTHESIA POST OP EVALUATION ---
Anesthesia Post Eval - Post Anesthesia Eval Vitals: Last Vital Signs Temp 36.3 C L 01/16/23 13:17 Pulse 68 01/16/23 13:17 Resp 12 01/16/23 13:17 BP 103/63 01/16/23 13:17 Pulse Ox 100 01/16/23 13:17 O2 Flow Rate CV Function Including HR & BP: Stable Pain Control: Satisfactory Nausea & Vomiting: Negative Mental Status: Baseline Respiratory Status: Airway Patent Hydration Status: Satisfactory Anesthesia Complications: None
[2023-01-16 13:36] VITALS: BP 110/76
== END 2023-01-16 09:53 | disposition home or self-care (01) ==
LOC: SDS 09:52
PROVIDERS: ATTEND Surgery
PROC: 0DBH8ZZ Excision of Cecum, Via Natural or Artificial Opening Endoscopic (ICD-10-PCS; 2023-01-16)
PROC: 0DBK8ZZ Excision of Ascending Colon, Via Natural or Artificial Opening Endoscopic (ICD-10-PCS; principal; 2023-01-16 11:00)
DX: Z12.11 Encounter for screening for malignant neoplasm of colon (principal); D12.0 Benign neoplasm of cecum; D12.2 Benign neoplasm of ascending colon; K57.30 Diverticulosis of large intestine without perforation or abscess without bleeding; G47.30 Sleep apnea, unspecified; F41.9 Anxiety disorder, unspecified
CPT/HCPCS: 45380; 45385; J0131; J7120

== ENCOUNTER 2023-07-08 08:24 | Outpatient (CLI) | payer MEDICARE, OTHER ==
[2023-07-08 11:44] LABS: BASOPHILS % (AUTO) 0.8 %; EOSINOPHILS # (AUTO) 0.1 10^3/uL (0.0-0.7); EOSINOPHILS % (AUTO) 2.1 %; HCT - HEMATOCRIT 43.2 % (37.0-47.0); HGB - HEMOGLOBIN 13.9 g/dL (12.0-16.0); LYMPHOCYTES # (AUTO) 1.4 10^3/uL (1.5-3.5); LYMPHOCYTES % (AUTO) 27.2 %; MEAN CORPUSCULAR HEMOGLOBIN 29.6 pg (27.0-31.0); MEAN CORPUSCULAR HGB CONC 32.2 g/dL (32.0-36.0); MEAN CORPUSCULAR VOLUME 91.9 fL (81.0-99.0); MEAN PLATELET VOLUME 11.7 fL (7.9-10.8); MONOCYTES # (AUTO) 0.5 10^3/uL (0.0-1.0); MONOCYTES % (AUTO) 9.5 %; NEUTROPHILS # (AUTO) 3.2 10^3/uL (1.5-6.6); NEUTROPHILS % (AUTO) 60.2 %; PLT - PLATELET COUNT 250 10^3/uL (130-450); RED CELL DISTRIBUTION WIDTH 13.5 % (12.0-15.0); WHITE BLOOD COUNT 5.3 x10^3/uL (4.8-10.8)
[2023-07-08 12:55] LABS: ALBUMIN 4.3 g/dL (3.2-5.5); ALBUMIN/GLOBULIN RATIO 1.7 (1.0-2.2); ALKALINE PHOSPHATASE 49 IU/L (42-121); ALT ALANINE AMINOTRANSFERASE 11 IU/L (10-60); AST ASPARTATE AMINOTRANSFERASE 16 IU/L (10-42); BILIRUBIN,TOTAL 0.4 mg/dL (0.2-1.0); BUN - BLOOD UREA NITROGEN 12 mg/dL (6-20); CALCIUM 9.3 mg/dL (8.5-10.3); CARBON DIOXIDE - CO2 29 mmol/L (21-32); CHLORIDE 105 mmol/L (101-111); CHOLESTEROL 161 mg/dL; CREATININE 0.7 mg/dL (0.6-1.3); GFR - MDRD 83 (>89); GLUCOSE 97 mg/dL (74-104); HDL CHOLESTEROL 54 mg/dL; LDL CHOLESTEROL,CALCULATED 90 mg/dL; LDL/HDL RATIO 1.7 (<4.4); POTASSIUM 4.5 mmol/L (3.5-4.5); SODIUM 139 mmol/L (135-145); TOTAL PROTEIN 6.9 g/dL (6.4-8.9); TRIGLYCERIDES 87 mg/dL (48-352); VLDL CHOLESTEROL 17 mg/dL
[2023-07-08 13:00] LABS: THYROID STIMULATING HORMONE 2.17 uIU/mL (0.34-5.60)
== END 2023-07-08 08:25 | disposition home or self-care (01) ==
LOC: LAB.N 08:24
PROVIDERS: ATTEND Nurse Practitioner
DX: E78.5 Hyperlipidemia, unspecified (principal); R53.83 Other fatigue; E04.1 Nontoxic single thyroid nodule
CPT/HCPCS: 36415; 80053; 80061; 83721; 84443; 85025

== ENCOUNTER 2023-07-27 11:14 | Outpatient (CLI) | payer MEDICARE, OTHER ==
--- NOTE | 2023-07-28 11:11 | Mammography Report ---
BILATERAL DIGITAL SCREENING MAMMOGRAM 3D/2D: 07/27/2023 CLINICAL: Routine screening. Comparison is made to exams dated: 07/19/2021 mammogram, 06/17/2019 mammogram - [facility], and 12/18/2016 mammogram - [facility]. There are scattered areas of fibroglandular density in both breasts (category b / 25%-50% glandular t issue). No significant masses, calcifications, or other findings are seen in either breast. There has been no significant interval change. IMPRESSION: NEGATIVE There is no mammographic evidence of malignancy. A 1 year screening mammogram is recommended. Based on the Tyrer Cuzick model (a risk assessment model) the patients lifetime risk is 3.7% and her 10 year risk is 2.4%. According to the ACR, ACS, and NCCN guidelines, an annual breast MRI exam archana g with mammogram is recommended if the patients lifetime risk is 20% or greater. This exam was interpreted at Station ID: [id number]. NOTE: For mammograms, a report in lay terms will be sent to the patient. Approximately 15% of breast malignancies will not be visualized mammographically. In the management of a palpable breast mass, a negative mammogram must not discourage biopsy of a clinically suspicious lesion. Electronically Signed By: Joel veliz/mannie:07/27/2023 18:05:33 letter sent: No_Letter ACR BI-RADS Category 1: Negative 3341F PARENCHYMAL PATTERN: (A) - The breast(s) demonstrate(s) scattered fibroglandular densities. BI-RADS CATEGORY: (1) - 1 Mammogram [id number] 1 year screening LATERALITY: (B)
== END 2023-07-27 11:15 | disposition home or self-care (01) ==
LOC: DI.N 11:14
DX: Z12.31 Encounter for screening mammogram for malignant neoplasm of breast (principal)

== ENCOUNTER 2024-07-07 09:14 | Outpatient (CLI) | payer MEDICARE, OTHER ==
[2024-07-07 11:51] LABS: BASOPHILS % (AUTO) 0.7 %; EOSINOPHILS # (AUTO) 0.1 10^3/uL (0.0-0.7); EOSINOPHILS % (AUTO) 1.2 %; HCT - HEMATOCRIT 43.9 % (37.0-47.0); HGB - HEMOGLOBIN 14.3 g/dL (12.0-16.0); LYMPHOCYTES # (AUTO) 1.6 10^3/uL (1.5-3.5); MEAN CORPUSCULAR HEMOGLOBIN 29.9 pg (27.0-31.0); MEAN CORPUSCULAR HGB CONC 32.6 g/dL (32.0-36.0); MEAN CORPUSCULAR VOLUME 91.6 fL (81.0-99.0); MONOCYTES # (AUTO) 0.5 10^3/uL (0.0-1.0); MONOCYTES % (AUTO) 9.3 %; NEUTROPHILS # (AUTO) 3.5 10^3/uL (1.5-6.6); NEUTROPHILS % (AUTO) 60.6 %; PLT - PLATELET COUNT 283 10^3/uL (130-450); RED BLOOD COUNT 4.79 10^6/uL (4.20-5.40); RED CELL DISTRIBUTION WIDTH 13.5 % (12.0-15.0); WHITE BLOOD COUNT 5.7 x10^3/uL (4.8-10.8)
[2024-07-07 11:59] LABS: ALBUMIN 4.5 g/dL (3.2-5.5); ALBUMIN/GLOBULIN RATIO 1.7 (1.0-2.2); ALKALINE PHOSPHATASE 50 IU/L (42-121); ALT ALANINE AMINOTRANSFERASE 13 IU/L (10-60); AST ASPARTATE AMINOTRANSFERASE 17 IU/L (10-42); BILIRUBIN,TOTAL 0.4 mg/dL (0.2-1.0); BUN - BLOOD UREA NITROGEN 12 mg/dL (6-20); CALCIUM 9.8 mg/dL (8.5-10.3); CARBON DIOXIDE - CO2 31 mmol/L (21-32); CHLORIDE 103 mmol/L (101-111); CHOLESTEROL 172 mg/dL; CREATININE 0.6 mg/dL (0.6-1.3); GFR - MDRD 99 (>89); GLUCOSE 97 mg/dL (74-104); HDL CHOLESTEROL 57 mg/dL; LDL CHOLESTEROL,CALCULATED 91 mg/dL; LDL/HDL RATIO 1.6 (<4.4); POTASSIUM 4.1 mmol/L (3.5-4.5); SODIUM 138 mmol/L (135-145); TOTAL PROTEIN 7.1 g/dL (6.4-8.9); TRIGLYCERIDES 119 mg/dL; VLDL CHOLESTEROL 24 mg/dL
[2024-07-07 12:13] LABS: THYROID STIMULATING HORMONE 2.36 uIU/mL (0.34-5.60)
== END 2024-07-07 09:15 | disposition home or self-care (01) ==
LOC: LAB.N 09:14
PROVIDERS: ATTEND Nurse Practitioner
DX: E78.5 Hyperlipidemia, unspecified (principal); R53.83 Other fatigue; E04.1 Nontoxic single thyroid nodule
CPT/HCPCS: 36415; 80053; 80061; 83721; 84443; 85025